=== PATIENT | female | born 1995 | race Two or more races ===

== ENCOUNTER → 2017-10-28 | Outpatient (CLI) | payer OTHER | END | disposition home or self-care (01) | LOC: NUCLEAR 10:00 | DX: D47.Z2 Castleman disease (principal); I88.1 Chronic lymphadenitis, except mesenteric; L03.319 Cellulitis of trunk, unspecified; B34.9 Viral infection, unspecified | CPT/HCPCS: 78802; A9556 ==

== ENCOUNTER 2018-09-03 09:02 | Outpatient (CLI) | payer OTHER | END 2018-09-03 09:04 | disposition home or self-care (01) | LOC: SONOGRAMA 09:02 | DX: R59.0 Localized enlarged lymph nodes (principal); N90.89 Other specified noninflammatory disorders of vulva and perineum; I89.8 Other specified noninfective disorders of lymphatic vessels and lymph nodes; R10.2 Pelvic and perineal pain; N83.201 Unspecified ovarian cyst, right side ==

== ENCOUNTER 2025-09-27 10:00 | Outpatient (CLI) | payer OTHER | END 2025-09-27 13:23 | disposition home or self-care (01) | LOC: SONOGRAMA 10:00 | PROVIDERS: ATTEND Internal Medicine Hematology & Oncology | DX: R10.20 Pelvic and perineal pain unspecified side (principal) ==